=== PATIENT | female | born 2000 | race Caucasian/White ===

== ENCOUNTER 2019-04-14 15:02 | Emergency (ER) | payer OTHER ==
[2019-04-14 15:17] VITALS: BP 123/73
[2019-04-14] MEDS ORDERED: ACETAMINOPHEN 325 MG TABLET PO STA (15:24)
--- NOTE | 2019-04-14 15:38 | ED Physician Documentation ---
History of Present Illness - Stated complaint Stated Complaint: HEAD INJ - Chief complaint Chief Complaint: General - History obtained from History obtained from: Patient - History of Present Illness Timing: Yesterday Pain level max: 7 Pain level now: 6 Improved by: Nothing Worsened by: Nothing - Additonal information Additional information: 19-year-old female presents the emergency department after falling off of a horse yesterday. When she fell to the ground she struck her head on a rock. No loss of consciousness. Did have nausea but no vomiting. Headache has steadily worsened since yesterday. Has not taken anything for this. No numbness or tingling. No neck or back pain. Is not on blood thinners at home. Review of Systems Constitutional: denies: Fever, Chills Skin: denies: Rash Musculoskeletal: denies: Neck pain, Back pain Neurologic: denies: Headache PD PAST MEDICAL HISTORY - Past Medical History Past Medical History: No - Past Surgical History Past Surgical History: No - Present Medications Home Medications: Ambulatory Orders Medication Instructions Recorded Confirmed traZODone [Desyrel] 50 mg PO HS 04/14/19 04/14/19 - Allergies Allergies/Adverse Reactions: Allergies Allergy/AdvReac Type Severity Reaction Status Date / Time No Known Drug Allergies Allergy Verified 04/14/19 15:17 PD ED PE NORMAL - Vitals Vital signs reviewed: Yes - General General: Alert and oriented X 3, No acute distress, Well developed/nourished - HEENT HEENT: PERRL, Other (TTP L parietal area. no palpable skull fractures. 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, No motor deficit, No sensory deficit, Normal speech - Psych Psych: Normal mood, Normal affect Results - Vitals Vitals: Vital Signs - 24 hr 04/14/19 15:15 Temperature 36.1 C L Heart Rate 86 Respiratory 16 Rate Blood Pressure 123/73 O2 Saturation 100 Oxygen O2 Source Room air - Rads (name of study) head CT Radiology: Prelim report reviewed, EMP read contemporaneously, See rad report (no acute abnormality.) PD MEDICAL DECISION MAKING - ED course Complexity details: reviewed results, re-evaluated patient, considered differential, d/w patient ED course: 19-year-old female with a closed head injury. Normal CT scan. Head injury instructions given at bedside. Patient counseled regarding signs and symptoms for which I believe and urgent re-evaluation would be necessary. Patient with good understanding of and agreement to plan and is comfortable going home at this time This document was made in part using voice recognition software. While efforts are made to proofread this document, sound alike and grammatical errors may occur. Departure - Departure Disposition: 01 Home, Self Care Clinical Impression: Closed head injury Qualifiers: Encounter type: initial encounter Qualified Code(s): S09.90XA - Unspecified injury of head, initial encounter Condition: Good Instructions: ED Head Injury Closed Follow-Up: JOHNNIE ROJAS [Primary Care Provider] - Within 1 week Comments: Thankfully your head CT does not show any bleeding inside the brain or skull fractures. You can use Motrin or Tylenol as needed for headaches. Return if you worsen. Discharge Date/Time: 04/14/19 16:11
--- NOTE | 2019-04-14 15:59 | CT Report ---
Reason: fall off horse, head vs rock Procedure Date: 04/14/2019 Accession Number: [id number] / [id number] Procedure: CT - HEAD WO CPT Code: FULL RESULT: EXAM: CT HEAD EXAM DATE: 04/14/2019 03:42 PM. CLINICAL HISTORY: Fall off horse, head vs rock. COMPARISON: None. TECHNIQUE: Multiaxial CT images were obtained from the foramen magnum to the vertex. Reformats: Sagittal and coronal. IV contrast: None. In accordance with CT protocol optimization, one or more of the following dose reduction techniques were utilized for this exam: automated exposure control, adjustment of mA and/or KV based on patient size, or use of iterative reconstructive technique. FINDINGS: Parenchyma: No intraparenchymal hemorrhage. No evidence of mass, midline shift, or CT findings of infarction. Epperson-white differentiation is distinct. Extraaxial Spaces: Normal for age. No subdural or epidural collections identified. Ventricles: Normal in size and position. Sinuses and Orbits: Imaged paranasal sinuses, orbits, and mastoids show no significant abnormality. Bones: No evidence of fracture or calvarial defect. Other: None. IMPRESSION: Negative for an acute or focal intracranial abnormality. RADIA
== END 2019-04-14 16:11 | disposition home or self-care (01) ==
LOC: ED 15:02
DX: S09.90XA Unspecified injury of head, initial encounter (principal); V80.010A Animal-rider injured by fall from or being thrown from horse in noncollision accident, initial encounter; W22.8XXA Striking against or struck by other objects, initial encounter; Y93.52 Activity, horseback riding
CPT/HCPCS: 70450; 99284; A9270

== ENCOUNTER 2019-11-24 15:41 | Emergency (ER) | payer OTHER ==
--- NOTE | 2019-11-24 16:18 | ED Physician Documentation ---
PD HPI URI - Stated complaint Stated Complaint: HEADACHE PAIN FEVER - Chief complaint Chief Complaint: General - History obtained from History obtained from: Patient - History of Present Illness Timing - onset: How many days ago (6) Timing duration: Days (6) Timing details: Gradual onset (She has had 6 days of general malaise fever chills nausea lessened oral intake and headache. She had been in bed in quarters. She been trying to hydrate but has been having increasing nausea. She states decreased urine output the last couple of days. She denies any diarrhea. She has had a little bit of cough but actually very minimal respiratory symptoms. She has had increased headaches in the last day or 2 but no neck stiffness nor confusion. She has increased weakness today with a lightheadedness upon standing and walking.) Associated symptoms: Fever, Nasal congestion, Dry cough (mild), NVD. No: Sore throat, Chest pain, Dyspnea Contributing factors: Sick contact (She states others in her [employer] have had similar symptoms and viral type illnesses) Improves by: Rest Worsened by: Activity (She feels lightheaded with getting up and walking around. She feels more nauseous.) Similar symptoms before: Has not had sx before Recently seen: [facility] ([facility] without any prescriptions given told it was a viral illness. Is taken ibuprofen.) Review of Systems Constitutional: reports: Fever, Chills, Myalgias, Fatigue Nose: reports: Congestion. denies: Rhinorrhea / runny nose Throat: denies: Sore throat Cardiac: denies: Chest pain / pressure Respiratory: reports: Cough. denies: Dyspnea, Wheezing GI: reports: Nausea, Vomiting. denies: Abdominal Pain, Diarrhea : denies: Dysuria Skin: denies: Rash Neurologic: reports: Generalized weakness, Near syncope (today), Headache. denies: Confused, Altered mental status PD PAST MEDICAL HISTORY - Past Medical History Cardiovascular: None Respiratory: None Neuro: None Endocrine/Autoimmune: None - Past Surgical History Past Surgical History: No - Present Medications Home Medications: Ambulatory Orders Medication Instructions Recorded Confirmed Hydrocodone/Acetaminophen [[place] 1 each PO Q6H PRN #12 tablet 11/24/19 5-325 Tablet] Ibuprofen [Motrin] 600 mg PO TID PRN #20 tab 11/24/19 Ondansetron Odt [Zofran] 4 mg TL Q6H PRN #20 tablet 11/24/19 dexAMETHasone [Decadron] 4 mg PO DAILY #5 tablet 11/24/19 - Allergies Allergies/Adverse Reactions: Allergies Allergy/AdvReac Type Severity Reaction Status Date / Time No Known Drug Allergies Allergy Verified 11/24/19 16:01 - Social History Does the pt smoke?: No Smoking Status: Never smoker PD ED PE NORMAL - Vitals Vital signs reviewed: Yes - General General: Alert and oriented X 3, Well developed/nourished - HEENT HEENT: Atraumatic, Ears normal, Pharynx benign. No: Moist mucous membranes - Neck Neck: Supple, no meningeal sign, Other (Mild anterior adenopathy. No neck stiffness. She is able to touch her chin to her chest without problems. Mild light sensitivity for her headache.) - Cardiac Cardiac: No murmur. No: RRR (Regular but tachycardic.) - Respiratory Respiratory: Clear bilaterally - Abdomen Abdomen: Normal bowel sounds, Soft, Non tender, Non distended - Derm Derm: Normal color, Warm and dry - Extremities Extremities: No tenderness to palpate, Normal ROM s pain - Neuro Neuro: Alert and oriented X 3, No motor deficit, Normal speech Results - Vitals Vitals: Vital Signs - 24 hr 11/24/19 11/24/19 11/24/19 15:50 16:35 18:01 Temperature 38.1 C H 38.5 C H Heart Rate 118 H 93 79 Respiratory 18 18 16 Rate Blood Pressure 117/75 112/72 106/61 O2 Saturation 97 99 97 Oxygen O2 Source Room air - Labs Labs: Laboratory Tests 11/24/19 11/24/19 11/24/19 16:17 16:17 16:17 WBC 9.3 RBC 5.01 Hgb 12.8 Hct 41.5 MCV 82.8 MCH 25.5 L MCHC 30.8 L RDW 14.9 Plt Count 226 MPV 10.0 Neut # (Auto) 6.8 H Lymph # (Auto) 1.3 L [place] # (Auto) 1.1 H Eos # (Auto) 0.0 Baso # (Auto) 0.0 Absolute Nucleated RBC 0.00 Nucleated RBC % 0.0 Sodium 131 L Potassium 3.6 Chloride 100 L Carbon Dioxide 23 Anion Gap 8.0 BUN 10 Creatinine 0.7 Estimated GFR (MDRD) 107 Glucose 82 Calcium 8.5 Total Bilirubin 0.2 AST 16 ALT 11 Alkaline Phosphatase 47 C-Reactive Protein 1.0 Total Protein 7.4 Albumin 4.2 Globulin 3.2 Albumin/Globulin Ratio 1.3 Lipase 28 Influenza A (Rapid) Negative Influenza B (Rapid) Negative PD MEDICAL DECISION MAKING - ED course Complexity details: reviewed results (Flu test is negative but she still sounds very flulike on her symptoms.), re-evaluated patient (She is feeling much improved with some antiemetic and fluids. Headache is moderately to fairly well improved with Tylenol and Toradol. She is given some morphine to help with the residual part of the headache. She is able to drink some fluids here in feels improved.), considered differential (The patient has general malaise, nausea, body aches, headache and only minimal cough over the last 6 days. She is not really having trouble breathing per se. She was having nausea and decreased appetite with lessened urine output in general weakness and lightheadedness. She was having increasing headache as well. Sound likely to be dehydrated adding to her general flulike symptoms. She does not really have respiratory symptoms that would be suggestive of coronavirus. She did not look ill enough to really think of meningitis so I defer lumbar puncture at this time.), d/w patient Departure - Departure Disposition: 01 Home, Self Care Clinical Impression: Flu-like symptoms, Dehydration Nausea and vomiting Qualifiers: Vomiting type: unspecified Vomiting Intractability: non-intractable Qualified Code(s): R11.2 - Nausea with vomiting, unspecified Headache Qualifiers: Headache type: unspecified Headache chronicity pattern: acute headache Intractability: not intractable Qualified Code(s): R51 - Headache Condition: Stable Record reviewed to determine appropriate education?: Yes Instructions: ED Flu, ED Nausea Vomiting Follow-Up: JOHNNIE ROJAS [Primary Care Provider] - Prescriptions: dexAMETHasone [Decadron] 4 mg PO DAILY #5 tablet Hydrocodone/Acetaminophen [[place] 5-325 Tablet] 1 each PO Q6H PRN #12 tablet PRN Reason: Pain Ibuprofen [Motrin] 600 mg PO TID PRN #20 tab PRN Reason: Pain Ondansetron Odt [Zofran] 4 mg TL Q6H PRN #20 tablet PRN Reason: Nausea / Vomiting Comments: Your influenza test is negative but this still sounds very flulike type of process. Try to stay well-hydrated as I think that contributed to your symptoms in addition to the illness. To aid in that, use ondansetron every 4-6 hours if needed for nausea. Decadron steroid daily for 5 days for inflammation. Use some ibuprofen 2-3 times a day for fevers and pains. To that add hydrocodone if needed for headache. Small frequent fluids and simple diet to begin with. Follow-up with your primary care in the next couple of days for recheck. Return to the ER sooner if worsening. Forms: Activity restrictions
[2019-11-24] MEDS ORDERED: SODIUM CHLORIDE 0.9% 1,000 ML IV ONE (16:39)
[2019-11-24] MEDS ORDERED: KETOROLAC 30 MG/ML VIAL IVP STA (16:39)
[2019-11-24] MEDS ORDERED: ONDANSETRON 4 MG/2 ML VIAL IVP STA (16:40)
[2019-11-24] MEDS ORDERED: FAMOTIDINE 20 MG/2 ML VIAL IVP STA (16:41)
[2019-11-24] MEDS ORDERED: ACETAMINOPHEN 1,000 MG/100 ML 100 ML IV STA (16:41)
[2019-11-24 16:50] LABS: BASOPHILS % (AUTO) 0.2 %; HGB - HEMOGLOBIN 12.8 g/dL (12.0-16.0); LYMPHOCYTES # (AUTO) 1.3 10^3/uL (1.5-3.5); LYMPHOCYTES % (AUTO) 14.1 %; MEAN CORPUSCULAR HEMOGLOBIN 25.5 pg (27.0-31.0); MEAN CORPUSCULAR HGB CONC 30.8 g/dL (32.0-36.0); MEAN CORPUSCULAR VOLUME 82.8 fL (81.0-99.0); MONOCYTES # (AUTO) 1.1 10^3/uL (0.0-1.0); MONOCYTES % (AUTO) 11.8 %; NEUTROPHILS # (AUTO) 6.8 10^3/uL (1.5-6.6); NEUTROPHILS % (AUTO) 73.6 %; PLT - PLATELET COUNT 226 10^3/uL (130-450); RED BLOOD COUNT 5.01 10^6/uL (4.20-5.40); RED CELL DISTRIBUTION WIDTH 14.9 % (12.0-15.0); WHITE BLOOD COUNT 9.3 x10^3/uL (4.8-10.8)
[2019-11-24 17:05] LABS: ALBUMIN 4.2 g/dL (3.2-5.5); ALBUMIN/GLOBULIN RATIO 1.3 (1.0-2.2); BILIRUBIN,TOTAL 0.2 mg/dL (0.2-1.0); CALCIUM 8.5 mg/dL (8.5-10.3); CREATININE 0.7 mg/dL (0.4-1.0); TOTAL PROTEIN 7.4 g/dL (6.7-8.2)
[2019-11-24] MEDS: MORPHINE 2 MG/ML CARPUJECT IVP STA ×2 (17:29→18:41)
[2019-11-24] MEDS ORDERED: DEXAMETHASONE 10 MG/ML VIAL IVP STA (18:21)
[2019-11-24] MEDS ORDERED: HYDROcod/ACET 5/325 Prepack 4 PO STA (18:21)
[2019-11-24] MEDS ORDERED: ONDANSETRON ODT 4 MG Prepack 2 TL PRN (18:21)
[2019-11-24] MEDS ORDERED: MORPHINE 2 MG/ML CARPUJECT IVP STA (18:21)
[2019-11-24 18:48] VITALS: BP 99/62
== END 2019-11-24 19:13 | disposition home or self-care (01) ==
LOC: ED 15:41
DX: J11.1 Influenza due to unidentified influenza virus with other respiratory manifestations (principal); J11.2 Influenza due to unidentified influenza virus with gastrointestinal manifestations
CPT/HCPCS: 36415; 80053; 83690; 85025; 86140; 87275; 87276; 96361; 96374; 96375; 96376; 99284; 99285; J0131

== ENCOUNTER 2020-02-01 18:37 | Emergency (ER) | payer OTHER ==
[2020-02-01 18:44] VITALS: BP 131/80
[2020-02-01] MEDS ORDERED: BUFFERED LIDOCAINE 10 ML SYRINGE SUBQ STA (18:48)
--- NOTE | 2020-02-01 18:49 | ED Physician Documentation ---
PD HPI UPPER EXT INJURY - Stated complaint Stated Complaint: LT INDEX FINGER LAX - Chief complaint Chief Complaint: Laceration - History obtained from History obtained from: Patient - History of Present Illness Location: Left (Right-handed young woman who is up-to-date on tetanus cut her left index finger with a knife while opening something accidentally at home just prior to arrival.) Review of Systems Constitutional: reports: Reviewed and negative Ears: reports: Reviewed and negative Nose: reports: Reviewed and negative PD PAST MEDICAL HISTORY - Past Medical History Cardiovascular: None Respiratory: None Neuro: None Endocrine/Autoimmune: None - Past Surgical History Past Surgical History: No - Present Medications Home Medications: Ambulatory Orders Medication Instructions Recorded Confirmed Hydrocodone/Acetaminophen [[place] 1 each PO Q6H PRN #12 tablet 11/24/19 5-325 Tablet] Ibuprofen [Motrin] 600 mg PO TID PRN #20 tab 11/24/19 Ondansetron Odt [Zofran] 4 mg TL Q6H PRN #20 tablet 11/24/19 dexAMETHasone [Decadron] 4 mg PO DAILY #5 tablet 11/24/19 - Allergies Allergies/Adverse Reactions: Allergies Allergy/AdvReac Type Severity Reaction Status Date / Time No Known Drug Allergies Allergy Verified 02/01/20 18:39 - Social History Does the pt smoke?: No Smoking Status: Never smoker PD ED PE NORMAL - Vitals Vital signs reviewed: Yes - General General: Alert and oriented X 3, No acute distress - Extremities Extremities: Other (On the left index finger at the level of the proximal phalanx and PIP, radial side there is a curved 2 cm laceration just goes into subcutaneous tissue with intact distal neurovascular status.) - Neuro Neuro: Alert and oriented X 3, Normal speech Results - Vitals Vitals: Vital Signs - 24 hr 02/01/20 18:40 Temperature 36.6 C Heart Rate 82 Respiratory 16 Rate Blood Pressure 131/80 H O2 Saturation 100 Oxygen O2 Source Room air Procedures - Laceration (location) L 2nd finger Length in cm: 2 Wound type: Curved, Superficial Neurovascular status: Sensory intact, Motor intact, Vascular intact Anesthesia: Lidocaine 1%, With bicarb (dig block) Wound Preparation: Irrigated copiously NS Skin layer closure: Nylon, Interrupted, Size #-0 - enter number (5-0) Other: Tetanus UTD Complexity: Simple Departure - Departure Disposition: 01 Home, Self Care Clinical Impression: Laceration of left index finger Qualifiers: Encounter type: initial encounter Damage to nail status: without damage Foreign body presence: without foreign body Qualified Code(s): S61.211A - Laceration without foreign body of left index finger without damage to nail, initial encounter Condition: Good Record reviewed to determine appropriate education?: Yes Instructions: ED Laceration Hand Comments: Come back for any signs of infection which would include: Redness, swelling, drainage, increased pain, or fevers. You can wash it soap and water. Keep it covered and moist with bacitracin ointment which is available over the counter; avoid neosporin. Follow-up with your physician in 10-14 days for suture removal.
== END 2020-02-01 19:40 | disposition home or self-care (01) ==
LOC: ED 18:37
DX: S61.211A Laceration without foreign body of left index finger without damage to nail, initial encounter (principal); W26.0XXA Contact with knife, initial encounter; Y93.89 Activity, other specified; Y92.009 Unspecified place in unspecified non-institutional (private) residence as the place of occurrence of the external cause
CPT/HCPCS: 12001; 99281; 99282

== ENCOUNTER 2020-07-02 17:57 | Emergency (ER) | payer OTHER ==
[2020-07-02] MEDS ORDERED: SODIUM CHLORIDE 0.9% 1,000 ML IV STA ×2 (19:10)
[2020-07-02] MEDS ORDERED: PROCHLORPERAZINE 10 MG/2 ML VIAL IVP STA (19:10)
[2020-07-02 19:11] LABS: BASOPHILS % (AUTO) 0.3 %; EOSINOPHILS # (AUTO) 0.1 10^3/uL (0.0-0.7); EOSINOPHILS % (AUTO) 0.7 %; HGB - HEMOGLOBIN 12.1 g/dL (12.0-16.0); LYMPHOCYTES # (AUTO) 2.7 10^3/uL (1.5-3.5); LYMPHOCYTES % (AUTO) 23.3 %; MEAN CORPUSCULAR HEMOGLOBIN 27.3 pg (27.0-31.0); MEAN CORPUSCULAR HGB CONC 33.1 g/dL (32.0-36.0); MEAN CORPUSCULAR VOLUME 82.6 fL (81.0-99.0); MEAN PLATELET VOLUME 9.3 fL (7.9-10.8); MONOCYTES # (AUTO) 0.7 10^3/uL (0.0-1.0); NEUTROPHILS # (AUTO) 8.1 10^3/uL (1.5-6.6); NEUTROPHILS % (AUTO) 69.3 %; PLT - PLATELET COUNT 321 10^3/uL (130-450); RED BLOOD COUNT 4.43 10^6/uL (4.20-5.40); RED CELL DISTRIBUTION WIDTH 14.1 % (12.0-15.0); WHITE BLOOD COUNT 11.7 x10^3/uL (4.8-10.8)
--- NOTE | 2020-07-02 19:14 | ED Physician Documentation ---
History of Present Illness - Stated complaint Stated Complaint: N/V/DIZZY - Chief complaint Chief Complaint: General - History obtained from History obtained from: Patient - Additonal information Additional information: 20-year-old female who is approximately 12 weeks comes to the emergency department with uncontrolled nausea and vomiting. LMP 04/08/2020. [facility]. She has had a ultrasound confirming IUP. Patient denies lower abdominal pain dysuria vaginal bleeding or loss of fluids. She is typically been taking Zofran to help with the nausea but it is no longer effective. She has also been taking Dramamine without relief. She has been having morning sickness the entire duration of her but worse over the last 2 weeks and for the last 3 days she has been unable to keep any medications down. Review of Systems Constitutional: denies: Fever, Chills Eyes: reports: Reviewed and negative Ears: reports: Reviewed and negative Nose: reports: Reviewed and negative Throat: reports: Reviewed and negative Cardiac: reports: Reviewed and negative Respiratory: reports: Reviewed and negative GI: reports: Nausea, Vomiting. denies: Abdominal Pain, Constipation, Diarrhea : reports: LMP (04/08/20), Now EGA. denies: Dysuria, Frequency, Vaginal bleeding Skin: reports: Reviewed and negative Musculoskeletal: reports: Reviewed and negative Neurologic: reports: Reviewed and negative PD PAST MEDICAL HISTORY - Past Medical History Past Medical History: Yes Cardiovascular: None Respiratory: None Neuro: None Endocrine/Autoimmune: None - Past Surgical History Past Surgical History: No - Present Medications Home Medications: Ambulatory Orders Medication Instructions Recorded Confirmed Hydrocodone/Acetaminophen [[place] 1 each PO Q6H PRN #12 tablet 11/24/19 5-325 Tablet] Ibuprofen [Motrin] 600 mg PO TID PRN #20 tab 11/24/19 Ondansetron Odt [Zofran] 4 mg TL Q6H PRN #20 tablet 11/24/19 dexAMETHasone [Decadron] 4 mg PO DAILY #5 tablet 11/24/19 Cephalexin [Keflex] 500 mg PO BID #14 capsule 07/02/20 Prochlorperazine [Compazine] 5 mg PO Q6H #10 tablet 07/02/20 - Allergies Allergies/Adverse Reactions: Allergies Allergy/AdvReac Type Severity Reaction Status Date / Time No Known Drug Allergies Allergy Verified 07/02/20 18:15 - Social History Does the pt smoke?: No Smoking Status: Never smoker Does the pt drink ETOH?: No Does the pt have substance abuse?: No - Immunizations Immunizations are current?: Yes - POLST Patient has POLST: No PD ED PE NORMAL - General General: Alert and oriented X 3, No acute distress, Well developed/nourished - HEENT HEENT: Atraumatic, EOMI, Moist mucous membranes - Neck Neck: Supple, no meningeal sign, No adenopathy - Cardiac Cardiac: RRR, No murmur, No gallop - Respiratory Respiratory: No respiratory distress, Clear bilaterally - Abdomen Abdomen: Normal bowel sounds, Soft - Back Back: No CVA TTP, No spinal TTP - Derm Derm: Normal color, Warm and dry, No rash - Extremities Extremities: No deformity - Neuro Neuro: Alert and oriented X 3, planning rn 2-12 intact, No motor deficit Eye Opening: Spontaneous Motor: Obeys Commands Verbal: Oriented GCS Score: 15 - Psych Psych: Normal mood Results - Vitals Vitals: Vital Signs - 24 hr 07/02/20 18:11 Temperature 36.8 C Heart Rate 80 Respiratory 16 Rate Blood Pressure 113/67 O2 Saturation 100 Oxygen O2 Source Room air - EKG (time done) 1849 Rate: Rate (enter#) (69) Rhythm: NSR [place]: Normal Intervals: Normal [place] QRS: Normal Ischemia: Normal ST segments Compare to prior EKG: Old EKG unavailable Computer interpretation: Agree with computer - Labs Labs: Laboratory Tests 07/02/20 07/02/20 07/02/20 18:50 18:50 18:50 WBC 11.7 H RBC 4.43 Hgb 12.1 Hct 36.6 L MCV 82.6 MCH 27.3 MCHC 33.1 RDW 14.1 Plt Count 321 MPV 9.3 Neut # (Auto) 8.1 H Lymph # (Auto) 2.7 [place] # (Auto) 0.7 Eos # (Auto) 0.1 Baso # (Auto) 0.0 Absolute Nucleated RBC 0.00 Nucleated RBC % 0.0 Sodium 146 H Potassium 3.4 L Chloride 106 Carbon Dioxide 26 Anion Gap 14.0 H BUN 13 Creatinine 0.6 Estimated GFR (MDRD) 126 Glucose 110 H Calcium 8.5 Total Bilirubin 0.3 AST 14 ALT 13 Alkaline Phosphatase 36 L Total Protein 6.6 L Albumin 3.8 Globulin 2.8 Albumin/Globulin Ratio 1.4 HCG, Quant 87497.00 Urine Color Urine Clarity Urine pH Ur Specific [place] Urine Protein Urine Glucose (UA) Urine Ketones Urine Occult Blood Urine Nitrite Urine Bilirubin Urine Urobilinogen Ur Leukocyte Esterase Urine RBC Urine WBC Ur Squamous Epith Cells Urine Bacteria Ur Microscopic Review Urine Culture Comments 07/02/20 19:20 WBC RBC Hgb Hct MCV MCH MCHC RDW Plt Count MPV Neut # (Auto) Lymph # (Auto) [place] # (Auto) Eos # (Auto) Baso # (Auto) Absolute Nucleated RBC Nucleated RBC % Sodium Potassium Chloride Carbon Dioxide Anion Gap BUN Creatinine Estimated GFR (MDRD) Glucose Calcium Total Bilirubin AST ALT Alkaline Phosphatase Total Protein Albumin Globulin Albumin/Globulin Ratio HCG, Quant Urine Color YELLOW Urine Clarity CLEAR Urine pH 6.0 Ur Specific [place] >=1.030 H Urine Protein NEGATIVE Urine Glucose (UA) NEGATIVE Urine Ketones 15 H Urine Occult Blood SMALL H Urine Nitrite NEGATIVE Urine Bilirubin NEGATIVE Urine Urobilinogen 0.2 (NORMAL) Ur Leukocyte Esterase NEGATIVE Urine RBC 0-5 Urine WBC 0-3 Ur Squamous Epith Cells NONE SEEN Urine Bacteria Rare Ur Microscopic Review INDICATED Urine Culture Comments NOT INDICATED PD MEDICAL DECISION MAKING - ED course Complexity details: reviewed results, re-evaluated patient, considered diff erential, d/w patient, d/w family ED course: 20-year-old female who is a primigravid comes to the ER with uncontrolled nausea and vomiting in early . [place] is [place] IUP. Patient denies vaginal bleeding or loss of fluids. Her Zofran is not working to control the nausea at home - Here in the emergency department her ECG was unremarkable and without any ischemic changes. Her labs revealed sodium of 145. Preserved renal function. No anemia. She was given 2 L of IV fluids here in the emergency department as well as Compazine. Following the Compazine she was tolerating oral liquids and felt ready for discharge home. We were able to obtain easy heart tones at the bedside with a rate of about 150. Though she denies dysuria urgency or frequency there is a small amount of blood in her urine is some bacteria. A culture is pending but we will initiate Keflex. Patient was advised to discuss this ED visit with Dr. [facility]. Emergent return precautions were discussed Departure - Departure Disposition: Home, Self Care Clinical Impression: and not yet delivered in first trimester, ASB (asymptomatic bacteriuria) Vomiting Qualifiers: Vomiting type: unspecified Vomiting Intractability: non-intractable Nausea presence: with nausea Qualified Code(s): R11.2 - Nausea with vomiting, unspecified Condition: Stable Record reviewed to determine appropriate education?: Yes Follow-Up: KANU FUNK [Primary Care Provider] - Prescriptions: Prochlorperazine [Compazine] 5 mg PO Q6H #10 tablet Cephalexin [Keflex] 500 mg PO BID #14 capsule Comments: Norma I hope that your nausea and vomiting improve soon. Thankfully you are almost at the end of your first trimester so it should be getting better on its own. To help with the vomiting at home I have prescribed a limited amount of Compazine since the Zofran is not working. Please use sparingly. Please discuss this [place] Your urine today shows some bacteria and possible early infection. This may be contributing to your symptoms. I have prescribed a medication called Keflex that you are to fill tomorrow and begin taking twice a day for the next week. Your first dose of Keflex has been given here in the emergency department. Please return to the ED for any fevers, uncontrolled vomiting, suddenly severe abdominal pain or if you feel that your symptoms are not improving
[2020-07-02 19:36] LABS: BILIRUBIN,URINE NEGATIVE (NEGATIVE); GLUCOSE, URINE (UA) NEGATIVE (NEGATIVE); KETONES,URINE (UA) 15 mg/dL (NEGATIVE); LEUKOCYTE ESTERASE, URINE NEGATIVE (NEGATIVE); NITRITE,URINE NEGATIVE (NEGATIVE); OCCULT BLOOD,URINE SMALL (NEGATIVE); PROTEIN,URINE NEGATIVE (NEGATIVE); UROBILINOGEN,URINE 0.2 (NORMAL) E.U./dL (NORMAL)
[2020-07-02 19:41] LABS: ALBUMIN 3.8 g/dL (3.2-5.5); ALBUMIN/GLOBULIN RATIO 1.4 (1.0-2.2); BILIRUBIN,TOTAL 0.3 mg/dL (0.2-1.0); CALCIUM 8.5 mg/dL (8.5-10.3); CREATININE 0.6 mg/dL (0.4-1.0); TOTAL PROTEIN 6.6 g/dL (6.7-8.2)
[2020-07-02 19:41] LABS: CLARITY,URINE CLEAR (CLEAR)
[2020-07-02 19:51] LABS: BACTERIA,URINE Rare /HPF (None Seen); RBC,URINE 0-5 /HPF (0-5); SQUAMOUS EPITHELIAL CELL,UR NONE SEEN (<= Few)
[2020-07-02] MEDS ORDERED: cephALEXin 250 MG CAPSULE PO STA (20:16)
[2020-07-02 20:20] VITALS: BP 103/59
== END 2020-07-02 20:27 | disposition home or self-care (01) ==
LOC: ED 17:57
DX: O21.0 Mild hyperemesis gravidarum (principal); O23.41 Unspecified infection of urinary tract in pregnancy, first trimester; B96.89 Other specified bacterial agents as the cause of diseases classified elsewhere; Z3A.12 12 weeks gestation of pregnancy
CPT/HCPCS: 36415; 80053; 81001; 84702; 85025; 93005; 96374; 99284; A9270; 81003; 83690; 87086

== ENCOUNTER 2020-11-19 08:00 | Outpatient (CLI) | payer OTHER ==
[2020-11-20 19:16] LABS: BACTERIAL VAGINOSIS DNA POSITIVE (NEGATIVE); CANDIDA GLABRATA DNA NEGATIVE (NEGATIVE); CANDIDA GROUP DNA NEGATIVE (NEGATIVE); CANDIDA KRUSEI DNA NEGATIVE (NEGATIVE); TRICHOMONAS VAGINALIS DNA NEGATIVE (NEGATIVE)
== END 2020-11-19 23:59 | disposition home or self-care (01) ==
LOC: LAB.R 08:00
PROVIDERS: ATTEND Advanced Practice Midwife
DX: O23.599 Infection of other part of genital tract in pregnancy, unspecified trimester (principal)
CPT/HCPCS: 87661; 87801

== ENCOUNTER 2020-12-08 13:13 | Outpatient (CLI) | payer OTHER ==
--- NOTE | 2020-12-08 19:15 | Ultrasound Report ---
PROCEDURE: OB F/U or Repeat INDICATIONS: UTERINE SIZE DATE DISCREPANCY OUTSIDE/PRIOR DATING DATA: Last menstrual period (LMP): 04/08/2020. LMP-based estimated date of delivery (ITZ): 01/13/2021. First dating scan (date and location): Outside study dated 08/31/2020. Estimated date of delivery (ITZ) from first dating scan: 01/19/2021. Provided stated due date is 2020. TECHNIQUE: Real-time scanning was performed of the fetus, with image documentation and biometric measurements. Endovaginal scanning: Not indicated COMPARISON: None. FINDINGS: General: A single living intrauterine gestation is present. Presentation: Vertex Placenta: Placental position is anterior,, without previa. Amniotic fluid index: 15.6 cm, 59.4 percentile for gestational age. Largest pocket measures 5.65 cm. heart rate: 147 beats per minute. Maternal cervical canal: 2.99 cm long and is closed; normal length is 2.5 cm or more. biometrics: Biparietal diameter: 8.57 cm, 34 weeks, 4 days Head circumference: 31.28 cm, 35 weeks, 0 day Abdominal circumference: 29.47 cm, 33 weeks, 3 days Femur length: 6.06 cm, 31 weeks, 4 days. Estimated gestational age from initial scan: 34 weeks, 6 days Composite gestational age from present scan: 33 weeks, 5 days Estimated weight and percentile: 2130 g, 9.2 percentile Measurement variability in biometric dating: +/- 10 days from 12-20 weeks gestation, +/- 2 weeks from 20-30 weeks gestation, +/- 3 weeks at 30 weeks gestation or more. Other: chest, bilateral kidneys, urinary bladder and stomach are visualized and are within norm al limits.. IMPRESSION: 1. Single live intrauterine with fetus in vertex presentation. heart rate is 147 bpm. Normal amount of amniotic fluid at 59.4 percentile. Largest pocket measures 5.65 cm. 2. Estimated weight is at 9.2 percentile. Estimated gestational age based on current study is 3 3 weeks, 5 days. Estimated gestational age based on initial scan is 34 weeks, 6 days. 3. Cervix is closed and measures 2.99 cm in length. Reviewed by: Dejan Vickers MD on 12/08/2020 6:14 PM [facility] Approved by: Dejan Vickers MD on 12/08/2020 6:14 PM [facility] Station ID: [id number]
== END 2020-12-08 13:14 | disposition home or self-care (01) ==
LOC: DI 13:13
PROVIDERS: ATTEND Advanced Practice Midwife
DX: O26.849 Uterine size-date discrepancy, unspecified trimester (principal); Z3A.33 33 weeks gestation of pregnancy

== ENCOUNTER 2020-12-15 15:50 | Outpatient (CLI) | payer OTHER ==
[2020-12-15 16:13] VITALS: BP 108/78
[2020-12-15 16:38] LABS: BILIRUBIN,URINE NEGATIVE (NEGATIVE); GLUCOSE, URINE (UA) NEGATIVE (NEGATIVE); KETONES,URINE (UA) NEGATIVE (NEGATIVE); LEUKOCYTE ESTERASE, URINE NEGATIVE (NEGATIVE); NITRITE,URINE NEGATIVE (NEGATIVE); OCCULT BLOOD,URINE NEGATIVE (NEGATIVE); PH,URINE 6.5 PH (5.0-7.5); PROTEIN,URINE NEGATIVE (NEGATIVE); UROBILINOGEN,URINE 0.2 (NORMAL) E.U./dL (NORMAL)
[2020-12-15 16:42] LABS: CLARITY,URINE HAZY (CLEAR)
[2020-12-15 16:48] LABS: RBC,URINE None Seen /HPF (0-5); SQUAMOUS EPITHELIAL CELL,UR MOD Squamous (<= Few); WBC,URINE 0-3 /HPF (0-5)
[2020-12-15 16:49] LABS: BACTERIA,URINE Moderate /HPF (None Seen)
--- NOTE | 2020-12-15 18:09 | PROVIDER PROGRESS NOTE ---
- HPI Chief Complaint: Pain, non-labor Current : Current EDU 01/13/21 Gestation 35 Weeks and 6 Days 1 Para 0 Vital Signs Temperature 36.8 C 12/15/20 16:08 Heart Rate 119 H 12/15/20 16:08 Respiratory Rate 16 12/15/20 16:08 Blood Pressure 108/78 12/15/20 16:08 O2 Saturation 99 12/15/20 16:08 Temperature 36.8 C 12/15/20 16:08 Heart Rate 119 H 12/15/20 16:08 Respiratory Rate 16 12/15/20 16:08 Blood Pressure 108/78 12/15/20 16:08 O2 Saturation 99 12/15/20 16:08 - Procedures OB Procedure Performed: NST Diagnosis/Indication for NST: labor Service Date of procedure: 12/15/20 - Plan Plan: Pt evaluated face to face Norma is a 20yo @ 35.6wks who presents today to [facility] with c/o lower back pain which wraps around to her front that occurred last night in the middle of the night for several hours and then resolved. She states the pain was gone when she woke up but returned later this afternoon. She denies vaginal bleeding or leakage of fluid. She reports +FM but states she "does not pay that much attention to her movements". She has felt intermittent abdominal tightening that comes and goes and states her abdomen is hard when they happen but denies associated pain. She denies having more than 5 of them in an hours. She states they did not seem to be associated with the back pain however they did happen when the back was happening. She states those contractions distracted her from the back pain but states she would not describe them as painful. She states she feels she drinks enough water daily but does not really like the taste of water so maybe she is not drinking enough. She denies change in bowel habits, diarrhea or constipation. She denies urinary symptoms. Pt states the pain did not make her nervous or feel she needed to come in, however her mom told her she should present for evaluation. O: Vital signs WNL. Afebrile. UA negative (cloudy urine) NST performed 12/15/2020 NST read 12/15/2020 NST reactive. FHR baseline 140, moderate variability, + accels, no decels No contractions appreciated via tocometry SVE deferred A: 20yo @ 35.6wks gestation FHR Category I Back pain, mild P: Pt released home with precautions. Encouraged pt to pay attention to movements daily and reviewed kick counting. Pt has emergency contact information. Reviewed warning s/sx and when to present. Pt verbalized understanding and agrees to above plan. She denies further questions or concerns at this time.
== END 2020-12-15 18:00 | disposition home or self-care (01) ==
LOC: FBP 15:50 → WFO 15:50
PROVIDERS: ATTEND Nurse Practitioner Obstetrics & Gynecology
DX: O99.891 Other specified diseases and conditions complicating pregnancy (principal); M54.9 Dorsalgia, unspecified; Z3A.35 35 weeks gestation of pregnancy
CPT/HCPCS: 59025; 81001; 99213

== ENCOUNTER 2020-12-23 08:00 | Outpatient (CLI) | payer OTHER | END 2020-12-23 23:59 | disposition home or self-care (01) | LOC: LAB.WC 08:00 | PROVIDERS: ATTEND Nurse Practitioner Obstetrics & Gynecology | DX: Z36.85 Encounter for antenatal screening for Streptococcus B (principal) | CPT/HCPCS: 87797 ==

== ENCOUNTER 2020-12-25 09:51 | Outpatient (CLI) | payer OTHER ==
[2020-12-25 10:04] VITALS: BP 125/71
--- NOTE | 2020-12-25 13:58 | PROCEDURE REPORT ---
- HPI Diagnosis/Indication for NST: Intrauterine growth restriction Current EDU 01/13/21 Gestation 37 Weeks and 2 Days 1 Para 0 Vital Signs Temperature 36.9 C 12/25/20 10:03 Heart Rate 108 H 12/25/20 10:03 Respiratory Rate 18 12/25/20 10:03 Blood Pressure 125/71 12/25/20 10:03 O2 Saturation 100 12/25/20 10:03 Temperature 36.9 C 12/25/20 10:03 Heart Rate 108 H 12/25/20 10:03 Respiratory Rate 18 12/25/20 10:03 Blood Pressure 125/71 12/25/20 10:03 O2 Saturation 100 12/25/20 10:03 - NST Procedure NST Procedure Start Date 12/25/20 Start Time 10:07 Stop Time 10:27 Vibroacoustic Stimulation Used No Patient States Movement Yes - Results and Plan Findings/Impression: Norma is a 20yo with complicated by IUGR at 9.2% NST perform date 12/25/2020 NST read date 12/25/2020 Baseline 145, moderate variability, accels 15x15, no decels Impression: Reactive Final Diagnosis: IUGR Plan: BPP is scheduled for tomorrow Continue with routine care Continue with twice weekly NST, with once weekly BPP
== END 2020-12-25 10:36 | disposition home or self-care (01) ==
LOC: WFO 09:51 → FBP 09:53 → WFO 10:36
PROVIDERS: ATTEND Advanced Practice Midwife
DX: O36.5930 Maternal care for other known or suspected poor fetal growth, third trimester, not applicable or unspecified (principal); Z3A.37 37 weeks gestation of pregnancy
CPT/HCPCS: 59025

== ENCOUNTER 2020-12-26 16:28 | Outpatient (CLI) | payer OTHER ==
--- NOTE | 2020-12-26 20:12 | Ultrasound Report ---
PROCEDURE: OB Biophysical Profile INDICATIONS: UTERINE SIZE DATE DISCREPANCY OUTSIDE/PRIOR DATING DATA: Last menstrual period (LMP): 04/08/2020. LMP-based estimated date of delivery (ITZ): 01/13/2021. First dating scan (date and location): 12/08/2020. Estimated date of delivery (ITZ) from first dating scan: 01/13/2021. TECHNIQUE: Real-time scanning was performed of the fetus, with image documentation and biometric tyree surements. Biophysical profile was also obtained. Endovaginal scanning: Not needed COMPARISON: 12/08/2020 FINDINGS: General: A single living intrauterine gestation is present. Presentation: Vertex Placenta: Placental position is anterior, without previa. Amniotic fluid index: 11.2 cm, 27th percentile for gestational age. heart rate: 145 beats per minute. Maternal cervical canal is not well seen due to deep vertex presentation of the fetus. biometrics: Composite gestational age from present scan: 37 weeks 3 days Biophysical profile: Tone: 2 points. Movement: 2 points. Respiration: 2 points. Largest pocket of fluid: 2 points. Umbilical artery Doppler: 2.5, 2.2, 2.1 IMPRESSION: Normal amniotic fluid volume, at the 27th percentile for current gestational age. Vertex presentation . Normal biophysical profile and normal umbilical artery systolic/diastolic ratio. Reviewed by: Justin Robin MD on 12/26/2020 8:11 PM PDT Approved by: Justin Robin MD on 12/26/2020 8:11 PM PDT Station ID: [id number]
== END 2020-12-26 16:29 | disposition home or self-care (01) ==
LOC: DI 16:28
PROVIDERS: ATTEND Advanced Practice Midwife
DX: O26.849 Uterine size-date discrepancy, unspecified trimester (principal); Z3A.00 Weeks of gestation of pregnancy not specified

== ENCOUNTER 2020-12-31 16:36 | Outpatient (CLI) | payer OTHER ==
--- NOTE | 2021-01-01 09:42 | Ultrasound Report ---
PROCEDURE: OB Biophysical Profile INDICATIONS: UTERINE SIZE DATE DISCREPANCY OUTSIDE/PRIOR DATING DATA: Last menstrual period (LMP): 04/08/2020. LMP-based estimated date of delivery (ITZ): 01/13/2021. First dating scan (date and location): Not available. Estimated date of delivery (ITZ) from first dating scan: 01/13/2021 from provider report. TECHNIQUE: Real-time scanning was performed of the fetus, with image documentation and biometric tyree surements. Biophysical profile was also obtained. COMPARISON: 12/08/2020 and 12/26/2020 FINDINGS: General: A single living intrauterine gestation is present. Presentation: Cephalic Placenta: Placental position is anterior, without previa. Amniotic fluid index: 12.6 cm, 44.1 percentile for gestational age. heart rate: 149 beats per minute. Maternal cervical canal: Not well seen. Estimated gestational age from initial scan: 38 weeks, 1 day Biophysical profile: Tone: 2 points. Movement: 2 points. Respiration: 2 points. Largest pocket of fluid: 2 points. 4.66 cm Umbilical artery Doppler: 3.02, 2.56, 3.05 at the level of placenta, abdomen and mid cord respective ly. IMPRESSION: 1. Single live intrauterine with fetus in cephalic presentation. heart rate is 1 49 b pm. Normal amount of amniotic fluid. AVLE equals 12.6 cm which is at 44.1 percentile. 2. biophysical profile score is 8 out of 8. 3. Normal umbilical cord S/D ratio. Reviewed by: Dejan Vickers MD on 01/01/2021 9:41 AM PDT Approved by: Dejan Vickers MD on 01/01/2021 9:41 AM PDT Station ID: [id number]
== END 2020-12-31 16:37 | disposition home or self-care (01) ==
LOC: DI 16:36
PROVIDERS: ATTEND Advanced Practice Midwife
DX: O26.849 Uterine size-date discrepancy, unspecified trimester (principal)

== ENCOUNTER 2020-12-31 17:31 | Outpatient (CLI) | payer OTHER ==
[2020-12-31 17:40] VITALS: BP 136/84
--- NOTE | 2020-12-31 18:00 | PROCEDURE REPORT ---
- HPI Diagnosis/Indication for NST: Intrauterine growth restriction Vital Signs Temperature 36.6 C 12/31/20 17:38 Heart Rate 103 H 12/31/20 17:38 Respiratory Rate 18 12/31/20 17:38 Blood Pressure 136/84 H 12/31/20 17:38 O2 Saturation 100 12/31/20 17:38 Temperature 36.6 C 12/31/20 17:38 Heart Rate 103 H 12/31/20 17:38 Respiratory Rate 18 12/31/20 17:38 Blood Pressure 136/84 H 12/31/20 17:38 O2 Saturation 100 12/31/20 17:38 - NST Procedure NST Procedure Start Time 10:07 Stop Time 10:27 - Results and Plan Plan: Norma is a 20yo with complicated by IUGR at 9.2% NST perform date 12/31/2020 NST read date 12/31/2020 Baseline 120, moderate variability, + accels, no decels Impression: Reactive Final Diagnosis: IUGR Plan: Continue twice weekly NSTs and once weekly BPP Continue with routine care Pt verbalized understanding and denies questions or concerns at this time.
== END 2020-12-31 18:15 | disposition home or self-care (01) ==
LOC: WFO 17:31 → FBP 17:32 → WFO 18:15
PROVIDERS: ATTEND Nurse Practitioner Obstetrics & Gynecology
DX: O36.5990 Maternal care for other known or suspected poor fetal growth, unspecified trimester, not applicable or unspecified (principal); O26.849 Uterine size-date discrepancy, unspecified trimester; Z3A.00 Weeks of gestation of pregnancy not specified
CPT/HCPCS: 59025

== ENCOUNTER 2021-01-06 16:53 | Observation (INO) | payer OTHER ==
[2021-01-06] MEDS ORDERED: CARBOPROST TROMETHAMINE 250 MCG/ML AMP IM PRN (17:52)
[2021-01-06] MEDS ORDERED: ACETAMINOPHEN 325 MG TABLET PO PRN (17:52)
[2021-01-06] MEDS ORDERED: OXYTOCIN 10 UNIT/ML VIAL IM PRN (17:52)
[2021-01-06] MEDS ORDERED: SODIUM CHLORIDE FLUSH 0.9% 10 ML SYRINGE IVP PRN (17:52)
[2021-01-06] MEDS ORDERED: TRANEXAMIC ACID IN NACL 1,000 MG/100 ML BAG IV PRN (17:52)
[2021-01-06] MEDS ORDERED: METOCLOPRAMIDE 10 MG/2 ML VIAL IVP PRN (17:52)
[2021-01-06] MEDS ORDERED: METOCLOPRAMIDE 10 MG TABLET PO PRN (17:52)
[2021-01-06] MEDS ORDERED: LIDOCAINE-MPF 1% 30 ML VIAL ID PRN (17:52)
[2021-01-06] MEDS ORDERED: METHYLERGONOVINE 0.2 MG/ML VIAL IM PRN (17:52)
[2021-01-06] MEDS ORDERED: ONDANSETRON 4 MG/2 ML VIAL IVP PRN (17:52)
[2021-01-06] MEDS ORDERED: OXYTOCIN/SODIUM CHLORIDE 500 ML IV PRN (17:52)
[2021-01-06] MEDS ORDERED: miSOPROStoL 200 MCG TABLET BC PRN (17:52)
[2021-01-06] MEDS ORDERED: ONDANSETRON ODT 4 MG TABLET TL PRN (17:52)
[2021-01-06] MEDS ORDERED: ZOLPIDEM 5 MG TABLET PO PRN (17:59)
--- NOTE | 2021-01-06 18:03 | HISTORY & PHYSICAL EXAMINATION ---
Admit History - Visit Reason Visit Reason: Other (IOL) - : 1 Parity: 0 Premature: 0 Ectopic: 0 : 0 Care: positive: Other ([facility] after veronica at 32.1wks from [facility]) Risk/History: positive: Other (IUGR) Complications This : positive: None Smoking Status: Never smoker - Mother's Labs Mother's Blood Type: positive: O Mother's RH: positive: Positive GBS: positive: Group B Step Negative Rubella Status: positive: Immune - Other Maternal History Other Maternal History: -20yo at 39.0wks gestation who presents to Labor and Delivery for pre- induction cervical ripening secondary to IUGR -Reports movement -Denies ctx/VB/LOF - care with [facility] which has been adequate after veronica from [facility] at 32.1wks - Complications *Mild IUGR- efw 9.2%. NSTs and BPPs all wnl -Dating Criteria Initial U/S: at [facility] at 10.5wks (itz 01/18/2021) -OB Hx *G1: current -Medications * vitamin-daily -Allergies *Anesthesia during all three historical surgeries- reports itching and nausea/vomiting in the days after. *Codeine- reports makes her mean -Medical History *PTSD *Insomnia- took trazodone prior to , unisom during *Adjustment disorder -Surgical History *Tonsillectomy 2012 *ACL/Meniscus repair 2013 *[place] Teeth extraction- approx. 2016 per patient -Family History *MGM- Cancer, CVD, HTN *MGF- DM, CVD, Stroke/CVA *PGF- DM -Social History *Non contributory - Labs, Immunizations, and Findings PROBLEMS: Suspected IUGR at 9.2%. Twice weekly NSTs and once weekly BPPs initiated. 39wk IOL indicated. Scheduled 01/06/2021 at 0800 LMP: 04/08/2020 ITZ by LMP: 01/13/2021 Initial U/S: at [facility] at 10.5wks (itz 01/18/2021) Final ITZ: 01/13/2021 O pos/Rubella immune VZV immune Gentic testing: Serum Int- neg. SMA- neg FAS: anterior placenta. VALE wl. 3VC. original EFW was 8%, but addendum was made for original office US itz, putting EFW at 33% f/u US 12/07/20: VALE wnl. 2130g or 9.2% Glucola: 99 Flu: declines TDAP - 12/09/2020 GBS at 36 weeks negative HSV: denies self and partner Breast pump Rx 11/19/2020, 12/30/2020 MOD: . FOB: Neil. Desires NCB. baby GIRL Nataliia pp contraception: No POPs, Has tolerated depo, discussed Nexplanon or Mirena. PAP: 06/22/2020 ASCUS; HPV pos (16/18 neg)- follow up one year (ASCCP) -SVE 2/75%/-2/mid/mod/intact -Vertex by BSUS -EFW by yonathan's 6.5# - Physical Exam: Normocephalic, atraumatic Abdomen gravid, soft, nontender Edema- none Psych- wnl -FHTs per flowsheet -Assessment *20yo at 39.0 who presents for IOL secondary to IUGR (9.2%) *Larkin Score 6- requires cervical ripening * Heart Tones- Category I -Plan *Admit to OBS(until active labor, SROM, AROM, epidural, or pitocin) *Cervical ripening with Misoprostol *Monitoring- Continuous *Comfort measures available- position changes, whirlpool tub, fentanyl, and epidural per maternal preference *Diet/Activity- per maternal preference *Anticipate Meds/Allgy - Allergies Allergies/Adverse Reactions: Allergies Allergy/AdvReac Type Severity Reaction Status Date / Time No Known Drug Allergies Allergy Verified 07/02/20 18:15 Physical - Abdominal Exam Vital Signs: Temp Pulse Resp BP Pulse Ox 36.6 C 90 16 137/72 H 01/06/21 17:04 01/06/21 17:04 01/06/21 17:04 01/06/21 17:04 Contraction Frequency (min/apart): irregular Contraction Intensity: positive: Mild Uterine Resting Tone: positive: Soft - Monitoring Heart Rate Baseline: 135 Strip Review: positive: Category I (moderate variability, accels 15x15, no decels) - Presentation Presentation: positive: Vertex (by BSUS) - Vaginal Exam Membranes: positive: Membranes intact Dilation (in cm): 2 Effacement (%): 75 Station: positive: -2 Cervical Position: positive: Midposition
[2021-01-06 18:06] LABS: BASOPHILS % (AUTO) 0.4 %; EOSINOPHILS # (AUTO) 0.1 10^3/uL (0.0-0.7); EOSINOPHILS % (AUTO) 0.4 %; HCT - HEMATOCRIT 29.6 % (37.0-47.0); HGB - HEMOGLOBIN 9.4 g/dL (12.0-16.0); LYMPHOCYTES # (AUTO) 2.4 10^3/uL (1.5-3.5); LYMPHOCYTES % (AUTO) 21.4 %; MEAN CORPUSCULAR HEMOGLOBIN 24.4 pg (27.0-31.0); MEAN CORPUSCULAR HGB CONC 31.8 g/dL (32.0-36.0); MEAN CORPUSCULAR VOLUME 76.7 fL (81.0-99.0); MEAN PLATELET VOLUME 10.4 fL (7.9-10.8); MONOCYTES # (AUTO) 0.9 10^3/uL (0.0-1.0); NEUTROPHILS # (AUTO) 7.9 10^3/uL (1.5-6.6); NEUTROPHILS % (AUTO) 69.3 %; PLT - PLATELET COUNT 329 10^3/uL (130-450); RED BLOOD COUNT 3.86 10^6/uL (4.20-5.40); RED CELL DISTRIBUTION WIDTH 14.8 % (12.0-15.0); WHITE BLOOD COUNT 11.3 x10^3/uL (4.8-10.8)
[2021-01-06] MEDS: miSOPROStoL 100 MCG TABLET BC SCH ×2 (18:36→23:30)
[2021-01-07] MEDS: fentaNYL 100 MCG/2 ML VIAL IVP PRN ×4 (05:19→20:10)
--- NOTE | 2021-01-07 10:12 | PROVIDER PROGRESS NOTE ---
Labor Progress Note - Uterine Monitoring Uterine Monitoring Mode: positive: External toco Contraction Frequency (min/apart): 2-4 Contraction Intensity: positive: Mild to moderate Uterine Resting Tone: positive: Soft - Monitoring Monitor Mode: positive: External ultrasound Heart Rate Baseline: 145 Heart Rate Variability: positive: Moderate (6-25 bmp) Accelerations: positive: Present, 15x15 Decelerations: positive: None Strip Review: positive: Category I - Vaginal Exam Dilation (in cm): 2 Effacement (%): 75 Station: 0 Cervical Position: Midposition - Labor Progress Note Labor Progress Note/Additional Text: S: Norma is quite uncomfortable with her contractions, using the nitrous gas for management. She is agreeable to lopez balloon placement. O: Two doses of miso given, contractions are too frequent for continued administration Lopez balloon placed in uterus (60mL) and vagina (40mL) SVE 2/75/0/mod/anterior A: 20yo at 39.1 wks gestation present for IOL r/t IUGR (9.2%) Continued cervical ripening indicated P: Evaluate for lopez removal at 12hrs, or may spont expel sooner Continuous monitoring Anticipate
--- NOTE | 2021-01-07 13:50 | ANESTHESIA ---
Pre-Anesthesia VS, & Labs - Diagnosis labor induction - Procedure labor epidural Vital Signs: Temp Pulse Resp BP Pulse Ox 36.6 C 90 16 137/72 H 01/06/21 17:04 01/06/21 17:04 01/06/21 17:04 01/06/21 17:04 Height: 5 ft 4 in Weight (kg): 90.265 kg Body Mass Index: 34.1 BMI Classification: Obese - NPO >8 hours - Is Patient ?: Yes - Lab Results Current Lab Results: Laboratory Tests 01/06/21 17:55: Blood Type O POSITIVE, Antibody Screen NEGATIVE 01/06/21 17:55: WBC 11.3 H, RBC 3.86 L, Hgb 9.4 L, Hct 29.6 L, MCV 76.7 L, MCH 24.4 L, MCHC 31.8 L, RDW 14.8, Plt Count 329, MPV 10.4, Neut # (Auto) 7.9 H, Lymph # (Auto) 2.4, [place] # (Auto) 0.9, Eos # (Auto) 0.1, Baso # (Auto) 0.0, Absolute Nucleated RBC 0.00, Nucleated RBC % 0.0 Fish Bones: 01/06/21 17:55 Home Medications and Allergies Active Medications Acetaminophen (Acetaminophen 325 Mg Tablet) 650 mg PO Q6H PRN PRN Reason: Pain or Fever Last Admin: 01/07/21 06:13 Dose: 650 mg Documented by: Carboprost Tromethamine (Carboprost Tromethamine 250 Mcg/Ml Amp) 250 mcg IM Q15M PRN PRN Reason: Step 4: Hemorrhage protocol Stop: 01/11/21 17:52 Fentanyl (Fentanyl 100 Mcg/2 Ml Vial) 50 mcg IVP Q1H PRN PRN Reason: PAIN Last Admin: 01/07/21 10:02 Dose: 50 mcg Documented by: Oxytocin/Sodium Chloride (Pitocin/Sodium Chloride) 500 mls @ 999 mls/hr IV PRN PRN; Protocol PRN Reason: POST- HEMORR PREVENTION Stop: 01/11/21 17:52 Tranexamic Acid (Tranexamic 1,000 Mg/100ml-Nacl) 1,000 mg in 100 mls @ 600 mls/hr IV .ONCE PRN PRN Reason: EBL >1200mL and within 3hr Stop: 01/11/21 17:52 Lactated Ringer's (Lr) 1,000 mls @ 100 mls/hr IV .Q10H [facility] Lidocaine HCl (Lidocaine-Mpf 1% 30 Ml Vial) 30 ml ID .ONCE PRN PRN Reason: PERINEAL REPAIR Stop: 01/11/21 17:52 Methylergonovine Maleate (Methylergonovine 0.2 Mg/Ml Vial) 0.2 mg IM .ONCE PRN PRN Reason: Step 2: Hemorrhage protocol Stop: 01/11/21 17:52 Metoclopramide HCl (Metoclopramide 10 Mg Tablet) 10 mg PO Q6H PRN PRN Reason: Nausea / Vomiting Metoclopramide HCl (Metoclopramide 10 Mg/2 Ml Vial) 10 mg IVP Q6H PRN PRN Reason: Nausea / Vomiting Misoprostol (Misoprostol 200 Mcg Tablet) 800 mcg BC .ONCE PRN PRN Reason: Step 3: Hemorrhage protocol Stop: 01/11/21 17:52 Misoprostol (Misoprostol 100 Mcg Tablet) 50 mcg BC Q4HR [facility] Last Admin: 01/06/21 23:30 Dose: 50 mcg Documented by: Ondansetron HCl (Ondansetron 4 Mg/2 Ml Vial) 4 mg IVP Q4HR PRN PRN Reason: Nausea / Vomiting Last Admin: 01/07/21 06:20 Dose: 4 mg Documented by: Ondansetron HCl (Ondansetron Odt 4 Mg Tablet) 4 mg TL Q4HR PRN PRN Reason: Nausea / Vomiting Oxytocin (Oxytocin 10 Unit/Ml Vial) 10 unit IM .ONCE PRN PRN Reason: Step one: If no IV access Stop: 01/11/21 17:52 Sodium Chloride (Sodium Chloride Flush 0.9% 10 Ml Syringe) 10 ml IVP 0100,0900,1700 [facility] Sodium Chloride (Sodium Chloride Flush 0.9% 10 Ml Syringe) 10 ml IVP PRN PRN PRN Reason: NEEDED PER PROVIDER ORDERS Last Admin: 01/07/21 05:19 Dose: 10 ml Documented by: Zolpidem Tartrate (Zolpidem 5 Mg Tablet) 5 mg PO QPM PRN PRN Reason: Insomnia Last Admin: 01/06/21 22:49 Dose: 5 mg Documented by: Allergies/Adverse Reactions: Allergies Allergy/AdvReac Type Severity Reaction Status Date / Time codeine AdvReac Mild Mood Verified 01/06/21 19:58 changes Anes History & Medical History - Anesthetic History Anesthesia Complications: reports: No previous complications - Medical History Cardiovascular: reports: None Pulmonary: reports: None Neuro: reports: None Endocrine/Autoimmune: reports: None Smoking Status: Never smoker History of Cancer?: No - Obstetrical History : 1 Parity: 0 Events: reports: Other (IUGR) Complications: reports: None Exam General: Alert, Oriented x3 Dental: WNL Mouth Opening: Greater than 4 Fingerbreadths Neck Mobility: Normal Mallampati classification: II Respiratory: Lungs clear Cardiovascular: Regular rate Plan Anesthesia Type: Epidural Consent for Procedure(s) Verified and Reviewed: Yes Code Status: Attempt Resuscitation ASA classification: 2-Mild systemic disease Is this case an emergency?: No
[2021-01-07] MEDS: miSOPROStoL 100 MCG TABLET BC SCH ×2 (15:55→20:35)
[2021-01-07] MEDS: SODIUM CHLORIDE FLUSH 0.9% 10 ML SYRINGE IVP SCH (16:32)
[2021-01-07] MEDS: LACTATED RINGERS 1,000 ML IV SCH (19:13)
--- NOTE | 2021-01-07 22:12 | PROVIDER PROGRESS NOTE ---
Labor Progress Note - Uterine Monitoring Uterine Monitoring Mode: positive: External toco Contraction Frequency (min/apart): 2-5 Contraction Intensity: positive: Mild to moderate Uterine Resting Tone: positive: Soft - Monitoring Monitor Mode: positive: External ultrasound Heart Rate Baseline: 135 Heart Rate Variability: positive: Moderate (6-25 bmp) Accelerations: positive: Present, 15x15 Decelerations: positive: None Strip Review: positive: Category I - Labor Progress Note Labor Progress Note/Additional Text: S: Norma is struggling with right sided hip/leg discomfort. She has used multipl e doses of fentanyl, whirlpool tub, and position changes. She reports the pain as acceptable at this time and is aware that epidural anesthesia is available at any time. O: Lopez balloon still in place Miso dose #4 given at 2029 A: 20yo at 39.1wks present for IOL r/t IUGR (9.2%) Early labor FHT reassuring Ctx- not adequate for cervical change P: Maintain lopez bulb until spontaneous explusion or a total of 24 hours Continue with misoprostol admin, per protocol Continuous monitoring Sleep aid available Fentanyl not to exceed 200mcg in a 24 hour period.
[2021-01-07] MEDS ORDERED: ROPIVACAINE 0.2% 200 MG/100 ML BAG EP ONE (23:43)
[2021-01-08] MEDS ORDERED: ONDANSETRON 4 MG/2 ML VIAL IVP PRN (00:22)
[2021-01-08] MEDS ORDERED: NALBUPHINE 10 MG/ML AMP IVP PRN (00:22)
[2021-01-08] MEDS ORDERED: diphenhydrAMINE INJ 50 MG/ML VIAL IVP PRN (00:22)
[2021-01-08] MEDS ORDERED: METOCLOPRAMIDE 10 MG/2 ML VIAL IVP PRN (00:22)
[2021-01-08] MEDS ORDERED: ROPIVACAINE 0.2% 200 MG/100 ML BAG EP PRN ×2 (00:22→06:20)
[2021-01-08] MEDS ORDERED: ePHEDrine 50 MG/ML VIAL IVP PRN (00:22)
[2021-01-08] MEDS ORDERED: NALOXONE 0.4 MG/ML VIAL IVP PRN (00:22)
[2021-01-08] MEDS: LACTATED RINGERS 1,000 ML IV SCH ×3 (01:05→15:58)
[2021-01-08] MEDS ORDERED: OXYTOCIN/SODIUM CHLORIDE 500 ML IV SCH (03:00)
[2021-01-08] MEDS ORDERED: fentaNYL 100 MCG/2 ML VIAL ONE ×2 (05:52→11:49)
[2021-01-08] MEDS ORDERED: LIDOCAINE-PF 2% 10 ML AMP SUBQ ONE (05:52)
--- NOTE | 2021-01-08 06:19 | CONSULTATION NOTE ---
Consultation Report: Called by RN as patient complaining of pain not relieved by PCEA boluses. Epidural site intact, Fentanyl 100mcg/Lidocaine2% 10 cc bolus given. BP stable. Intermittent bolus increases to 12cc every 45 min.
--- NOTE | 2021-01-08 08:34 | CONSULTATION NOTE ---
Consultation Report: called by RN as pt complaining of pain not relieved by PCEA. Epidural site intact. Pt c/o pain at "very top and very bottom" of abdomen. Fentanyl 100mcg/Lidocaine 1% 10cc bolus given per epidural. Pt reports feeling cool sensation as bolus administered. BP remains stable.
--- NOTE | 2021-01-08 09:49 | PROVIDER PROGRESS NOTE ---
Labor Progress Note - Uterine Monitoring Uterine Monitoring Mode: positive: External toco (Nursing having difficulty trac ing contractions in certain maternal positions, using palpation at those tiems), Palpation Contraction Frequency (min/apart): 2-4 Contraction Intensity: positive: Mild to moderate Uterine Resting Tone: positive: Soft - Monitoring Monitor Mode: positive: External ultrasound Heart Rate Baseline: 140 Heart Rate Variability: positive: Moderate (6-25 bmp) Accelerations: positive: Present, 15x15 Decelerations: positive: None Strip Review: positive: Category I, Category II (periods of cat II throughout night with full recovery to Cat I) - Vaginal Exam Dilation (in cm): 5 Effacement (%): 80 Station: -1 Cervical Position: Anterior - Labor Progress Note Labor Progress Note/Additional Text: S: Norma is resting in bed with little voluntary movement of her legs. She has struggled through the night with pain coverage. She feels well managed currently, as she was recently given a bolus by the [employer]NAGER [employer]. O: 0836: SVE: /-1 AROM clear fluid Three episodes in the night of abrupt heart rate deceleration with slow recovery. Pitocin was being administered, but has now been turned off A: 20yo at 39.2wks gestation Early labor Appropriate for pitocin augmentation when Cat I strip for 60mins Discussed FHR decelerations and possibility of amnioinfusion and/or delivery for wellness, all questions answered P: Augment with pitocin as strip allows Continuous monitoring Anticipate
[2021-01-08] MEDS ORDERED: LIDOCAINE-MPF 1% 30 ML VIAL ONE (10:54)
--- NOTE | 2021-01-08 11:04 | CONSULTATION NOTE ---
Consultation Report: called to the beside for increasing labor pain. Epidural site intact. Fentanyl 100mcg/Lidocaine 10cc 1% bolus per epidural. Pt reported 'cold sensation" in back as pushing bolus. Neg aspiration. BP remained stable.
[2021-01-08] MEDS ORDERED: ROPIVACAINE 0.2% PF 10 ML VIAL ONE (11:49)
--- NOTE | 2021-01-08 12:00 | CONSULTATION NOTE ---
Consultation Report: called to the bedside for increasing labor pain. Epidural site assessed, no change in catheter position. Fentanyl 100mcg/ Ropivacaine 0.2% 6cc bolus per epidural. Negative aspiration. BP remained stable.
--- NOTE | 2021-01-08 13:12 | CONSULTATION NOTE ---
Consultation Report: Call for new pain with contractions. Level assessed at L3. Bolus 10cc Lidocaine 2%, 5cc NS slowly. New level assessed at T12, pain control satisfactory after 7 mins.
[2021-01-08] MEDS ORDERED: SODIUM CHLORIDE 0.9% 10 ML VIAL IVP ONE ×2 (13:23→14:17)
[2021-01-08] MEDS ORDERED: LIDOCAINE-MPF 2% 5 ML VIAL ONE ×2 (13:24→14:17)
--- NOTE | 2021-01-08 13:40 | PROVIDER PROGRESS NOTE ---
Labor Progress Note - Uterine Monitoring Uterine Monitoring Mode: positive: External toco Contraction Frequency (min/apart): 2-4 Contraction Intensity: positive: Mild to moderate Uterine Resting Tone: positive: Soft - Monitoring Monitor Mode: positive: External ultrasound Heart Rate Baseline: 140 Heart Rate Variability: positive: Moderate (6-25 bmp) Accelerations: positive: Present, 15x15 Decelerations: positive: None Strip Review: positive: Category I - Vaginal Exam Dilation (in cm): 6 Effacement (%): 90 Station: -1 Cervical Position: Anterior - Labor Progress Note Labor Progress Note/Additional Text: S: Norma is now comfortable with her epidural. She has had several boluses per KNITTING SUPERVISOR. O: IUPC placed at approx 1200 SVE 6/90/-1 Pitocin at 3mU/min Recheck at 1355 8/90/0 A: 20yo at 39.2wks gestation Active labor MVUs per nursing-approx 180 Adequate cervical change P: Anticipate Continue pitocin augmentation per protocol Continuous monitoring
--- NOTE | 2021-01-08 15:09 | ANESTHESIA PROCEDURE NOTE ---
Anesthesia Epidural Template - Patient Report Patient Reports: positive: Inadequate control (Pt with pain at contractions not resolved with bolus.) - Plan Plan: positive: Other (replace epidural: discussed options with mom, electes to replaced epidural. L3-4 preppped with chlorhexadine, lido 1%3cc at site after sterile prep drape. PORSCHE@7cm, DPE w/25ga to +CSF. Cath threaded to 13cm. negative test dose at 1456, bolus 7cc 2% lidocaine and restarted epidurla pump at 12cc q45m)
[2021-01-08] MEDS ORDERED: HYDROCORTISONE 1% CREAM 28 GM TUBE PR PRN (16:55)
[2021-01-08] MEDS ORDERED: WITCH HAZEL/GLYCERIN 1 PAD TOP PRN (16:55)
--- NOTE | 2021-01-08 18:24 | DELIVERY NOTE ---
Delivery Note - Labor Labor: positive: Augmented by ARM, Augmented by oxytocin - Delivery Method Delivery Method: positive: Spontaneous vaginal delivery - Cervical Ripening Method Cervical Ripening Method: positive: Balloon device, Misoprostil - Presentation Presentation: positive: Vertex - Nuchal Cord Nuchal Cord: positive: None - Amniotic Fluid Description Amniotic Fluid Description: positive: Clear - Episiotomy Type Episiotomy Type: positive: None - Laceration Laceration: positive: 1st degree, Vaginal - Suture Suture Type: positive: Vicryl Suture Size: positive: 3-0 - Delivery Outcome Delivery Outcome: positive: Livebirth - [place]: positive: Bulb syringe, Stimulated, [place] used [place] sex: positive: Female : 9 : 9 - Cord Cord: positive: 3 vessels - Placenta Placenta: positive: Intact, Spontaneous - Estimated Blood Loss Estimated Blood Loss (in cc): 150 - Post Delivery Events Post Delivery Events: positive: No post delivery events - Delivery Comments (Free Text/Narrative) Delivery Comments (Free Text/Narrative): Note: Labor: This 20 year old, , @39.0 wks gestation by 10.5 week Ultrasound, confirmed by LMP, presented on 01/06/2021 for IOL secondary to mild IUGR at 9.2%. Cervix was 2/75/-2 and vertex by BSUS. FHR pattern demonstrated 135 baseline in a Category I pattern. Cervix was ripening with misoprostol and lopez balloon, then labor was augmented with pitocin. Normal labor course. Epidural placed upon maternal request, a replacement was required for adequate coverage. AROM occurred @ 0836 and amount and color of fluid were noted to be scant and clear. : Normal of a 2970gm female , named Nataliia on 01/08/2021 @ 1615. Nuchal not present, however was found to be wrapped round baby's right elbow. The was placed on maternal abdomen, stimulated, dried and placed skin to skin. Apgars 9 at one minute and 9 at five minutes. The umbilical cord was allowed to stop pulsating at which time it was doubly clamped by CNM and cut by FOB. Pitocin administered via IV for hemostasis. Fundal massage and gentle cord traction applied for active third stage management. Cord blood was obtained. Placenta delivered spontaneously and intact at 1624. Three vessel cord. EBL 150mL. Fourth Stage: Uterine fundus firm and without excessive bleeding. The perineum, vagina, and cervix were inspected and found to have sustained a first degree vaginal laceration, for which a 3-0 vicryl was used and was repaired in standard fashion under sterile conditions. Vaginal examination following repair was done. Tissues well approximated. initiated. Family bonding well. Both mother and baby are in stable condition.
[2021-01-08] MEDS: DOCUSATE SODIUM 100 MG CAPSULE PO SCH (21:20)
[2021-01-08] MEDS: SODIUM CHLORIDE FLUSH 0.9% 10 ML SYRINGE IVP SCH (22:02)
[2021-01-09] MEDS: DOCUSATE SODIUM 100 MG CAPSULE PO SCH (09:24)
[2021-01-09] MEDS: IBUPROFEN 600 MG TABLET PO SCH ×3 (09:29→13:34)
--- NOTE | 2021-01-09 14:42 | PROVIDER PROGRESS NOTE ---
Subjective - Prog Note Date Prog Note Date: 01/09/21 Prog Note Time: 08:00 - Subjective Pt reports feeling: Improved Subjective: S: Norma is resting in bed, she is calm and expresses happiness with her , , and the support she received from her partner in labor. She reports baby's latch as strong and sometimes uncomfortable, but that she is happy that baby is a strong insurance account assistant! She reports that she is hardly bleeding any more. Her pain is reduced and she feels well healed. She reports she no longer require s the TA and ibuprofen as much. O: Fundus firm lochia rubra A: 20 yo sp pp day 1 Excellent maternal attachment behaviors noted Normal recovery P: Continue with routine care Evaluate for discharge home tomorrow Objective - Vital Signs/Intake & Output Vital Signs: Vital Signs x48h Temp Pulse Resp BP 01/09/21 09:15 36.9 C 90 18 117/71 Intake & Output: Intake & Output 01/06/21 01/07/21 01/08/21 01/09/21 23:59 23:59 23:59 23:59 Intake Total 760 1349.65 3213.017 Output Total 1225 Balance 760 1349.65 1988.017 - Lab Results Fish Bones: 01/06/21 17:55 Other Labs: Lab Results x24hrs 01/06/21 01/06/21 Range/Units 17:55 15:36 Blood Type O POSITIVE Blood Type Recheck O POSITIVE Antibody Screen NEGATIVE Crossmatch IS Only See Detail
--- NOTE | 2021-01-10 10:06 | PROVIDER PROGRESS NOTE ---
Subjective - Prog Note Date Prog Note Date: 01/10/21 Prog Note Time: 10:06 - Subjective Pt reports feeling: Improved Subjective: S: Norma is resting in bed holding baby. She is cheerful and reports a peaceful night, although she may have drank too much apple juice. She reports as going well and that she is adjusting to the lack of sleep. She is not taking PO pain meds, and feels her pain is under control. Her bleeding is light. O: fundus firm lochia rubra A: 20yo s/p on pp day 2 normal recovery P: Continue routine care Discharge home today Objective - Vital Signs/Intake & Output Vital Signs: Vital Signs x48h Temp Pulse Resp BP Pulse Ox 01/10/21 03:56 36.9 C 88 16 118/76 100 Intake & Output: Intake & Output 01/07/21 01/08/21 01/09/21 01/10/21 23:59 23:59 23:59 23:59 Intake Total 1349.65 3213.017 Output Total 1225 Balance 1349.65 1988.017 - Lab Results Fish Bones: 01/06/21 17:55 Other Labs: Lab Results x24hrs 01/06/21 Range/Units 17:55 Crossmatch IS Only See Detail
--- NOTE | 2021-01-10 10:16 | DISCHARGE SUMMARY ---
Discharge Summary Admit Date: 01/06/21 Discharge Date: 01/10/21 - HPI History of Present Illness: Admit Date 01/06/2021 Discharge Date 01/10/2021 Diagnosis on Admission: 1. A 20yo at 39.0 week intrauterine 2. IUGR (mild- 9.2%) Diagnosis on Discharge 1. A 89yo s/p spontaneous vaginal delivery on 01/08/2021 2. Normal recovery 3. AGA baby Brief History: She is a patient at [facility] who presented on 01/06/2021 for induction of labor r/t suspected IUGR. Her cervix was 2cm dilated, 75%effaced, and -2 station. Cervical ripening was performed with misoprostol and lopez balloon. She as augmented with pitocin and spontaneously delivered a viable female infant named Nataliia. Apgars were 9 and 9- and 1 and 5 minutes resp ectively. EBL 150 mL. The patient has a 1st degree laceration that was repaired with 3-0 vicryl in usual fashion under sterile conditions. She has been doing well in her course. She is ambulating and tolerating a regular diet. She is urinating without difficulty and her lochia is normal. Her pain is well controlled with oral medications. She will be discharged home today on day #2 without need for prescriptions. She intends to follow up with Midwifery at [facility] in 1, and 6 weeks for routine visit. She has been given precautions to call if she has any worsening fevers, chills, abdominal pain, increased bleeding or foul smelling vaginal lochia. - ALLERGIES Allergies/Adverse Reactions: Allergies Allergy/AdvReac Type Severity Reaction Status Date / Time codeine AdvReac Mild Mood Verified 01/06/21 19:58 changes - MEDICATIONS Home Medications: Ambulatory Orders Medication Instructions Recorded Confirmed Doxylamine Succinate [Unisom] 25 mg PO PRN PRN 01/08/21 01/08/21 Omeprazole 40 mg PO PRN PRN 01/08/21 01/08/21 diphenhydrAMINE [Benadryl] 25 mg PO HS 01/08/21 01/08/21 - LABS Result Diagrams: 01/06/21 17:55
--- NOTE | 2021-01-10 10:17 | Discharge Plan ---
Discharge Plan Problem Reviewed?: Yes Disposition: Home, Self Care Condition: Good Diet: Regular Additional Instructions or Follow Up instructions: Follow up with Midwifery at 1 and 6wks No Smoking: If you smoke, Please STOP! Call for help. Follow-up with: Nimo Petersen CNM, ARNP [Provider Admit Priv/Credential] -
[2021-01-10 15:11] VITALS: BP 115/74
--- NOTE | 2021-01-10 15:25 | Labor Flowsheet ---
Labor Flowsheet Datetime Report Generated by CPN: 01/10/2021 15:25 Datetime: 01/10/2021 09:21 VITAL SIGNS NBP Sys/Maddi/Mean (mmHg): 115 : 74 : 82 Pulse: 92 Datetime: 01/10/2021 09:20 SpO2 (%): 100 Datetime: 01/08/2021 18:30 Stage of : Recovery Datetime: 01/08/2021 17:50 Membranes Ruptured Date/Time: 01/08/2021 08:36 Amniotic Fluid Odor: Normal Cervical Ripening Agents Other: cervical balloon Datetime: 01/08/2021 16:24 Stage 2 Comments: placenta Datetime: 01/08/2021 16:22 MEDICATIONS Pitocin (milliunits): Started @ 350 Medication Comments: Datetime: 01/08/2021 16:15 Contraction Comments: IUPC removed. Contractions not traced ASSESSMENT A Monitor Mode: External US FHR Baseline Rate : 120 Variability: Moderate 6-25 bpm Accelerations: None Decelerations: None Category: Category I Datetime: 01/08/2021 16:00 UTERINE ACTIVITY Monitor Mode: Internal Frequency (min): 3-5 Quality: Strong Duration (sec): 90-160 Pattern: Normal: <= 5 Contractions in 10 Minutes Resting Tone (Palpate): Relaxed Resting Tone IUP (mmHg): 35 [place] Units (mmHg): 95 Pitocin Checklist: Uterus Palpates Soft between Contractions Datetime: 01/08/2021 15:32 I/O Interventions: [place] Discontinued Datetime: 01/08/2021 15:07 STAGE 2 Pushing: Coached on Pushing; Urge to Push Pushing Position: Pushing with Contractions; Pushing Lithotomy Datetime: 01/08/2021 15:06 VAGINAL EXAM Dilatation (cm): 9.5 Effacement (%): 100 Exam by: Denia Gillis Vaginal Exam Comments: anterior lip Datetime: 01/08/2021 15:00 Patient Care Comments: Nohemy @ bedside LaborFlag: Labor Datetime: 01/08/2021 14:58 Epidural Procedure: Loading Dose Datetime: 01/08/2021 14:53 Comments: coincidence. RN @ bedside for frequent US adjustments during epidural placement Datetime: 01/08/2021 14:49 PROCEDURE TIME OUT Procedure Verify: Correct Patient Position ANESTHESIA Anesthesia Plans: Epidural Epidural Positioning: Sitting Datetime: 01/08/2021 14:43 Anesthesia Comments: CRNAs Celis and Duron @ bedside to eval epidural and discuss replacement. Patient in agreement. Datetime: 01/08/2021 14:25 Temperature (C): 36.8 Datetime: 01/08/2021 14:22 Patient Position/Activity: High Fowlers Datetime: 01/08/2021 14:19 Epidural Procedure Other: Redose Datetime: 01/08/2021 14:11 Provider Notified (Name): IDENTIFICATION TECHNICIAN Celis Communication Comments: Called provider for ETA. Provider unable to come, IDENTIFICATION TECHNICIAN Duron entroute. Datetime: 01/08/2021 14:00 Station: 0 Datetime: 01/08/2021 13:46 PAIN Pain Scale: 7 Pain Assessment Comments: Pt starting to feel ctx again Datetime: 01/08/2021 13:12 Membrane Comments: IUPC zeroed _ flushed Datetime: 01/08/2021 12:15 Monitor Interventions for UA: IUPC Inserted Datetime: 01/08/2021 11:46 Pain Presence: Intermittent Pain Type: Cramping; Sharp; Contraction Pain Location: Abdomen Pain Coping: Crying Datetime: 01/08/2021 10:15 FHR Baseline Changes: No Baseline Change Datetime: 01/08/2021 08:36 Membrane Status: Ruptured Membranes Rupture Method: Artificial Amniotic Fluid Color: Clear Amniotic Fluid Amount: Scant Datetime: 01/08/2021 08:00 Respirations: 16 Temperature Route: Oral Datetime: 01/08/2021 06:47 COMMUNICATION Communication: Call/Page Placed to Provider Notification Reason: Status Update; Status; Labor Status Datetime: 01/08/2021 06:39 Anesthesia Level Check: T8- Ribs Datetime: 01/08/2021 06:37 Hygiene: Gini Care Datetime: 01/08/2021 06:32 Actions for Decelerations: Sterile Vaginal Exam Vaginal Bleeding: Normal Show Cervix, Consistency: Soft Cervix, Position: Midposition Presentation 'A': Cephalic Datetime: 01/08/2021 06:17 PATIENT CARE IV/Blood Work: New IV Bag Hung; IV Bag Number @ 3 Datetime: 01/08/2021 05:28 Pain Relief Measures: Comfort Measures Comfort Measures: Breathing/Relaxation Datetime: 01/08/2021 02:42 TEACHING Instructional Method: Verbal; Verbalized Understanding Plan of Care: Plan of Care Discussed Labor/Induction: Interventions Medications: Pitocin Datetime: 01/08/2021 00:35 Vital Sign Comments: o2 saturation reading low, rn to bedside, pulse ox readjusted, saturation 100% RA Datetime: 01/07/2021 23:12 Pain Management: Epidural Datetime: 01/07/2021 22:01 Monitor Interventions for FHR: Ultrasound Adjusted Datetime: 01/07/2021 21:28 Provider Reviewed Strip: Yes Datetime: 01/07/2021 20:35 Cervical Ripening Agents: Cytotec @ Datetime: 01/07/2021 20:10 Analgesics/Sedatives: Fentanyl (mcg) @ 50 IV Datetime: 01/07/2021 19:36 Unit Routine: Call Ewing; Monitoring; IV Pumps; Bathroom Privileges Datetime: 01/07/2021 19:24 MATERNAL ASSESSMENT Level of Consciousness: Alert DTR's/Clonus: DTRs 2+; No Clonus Headache: Denies Breath Sounds, Left: Clear and Equal Breath Sounds, Right: Clear and Equal Nausea/Vomiting: Denies RUQ Epigastric Pain: Denies Datetime: 01/07/2021 18:00 Oxygen Method: Room Air Datetime: 01/07/2021 06:18 Antiemetics/Antacids: Zofran (mg) @ 4 IV Datetime: 01/06/2021 20:34 Teaching Comments: educated on tub safety, pt to call RN upon exiting
== END 2021-01-10 13:25 | disposition home or self-care (01) ==
LOC: WFO 16:53 → FBP 16:58 → INTOOBSV 17:52 → WFO 17:52 → UNDOADMIN 17:52 → UNDODISIN 01-10 13:25
PROVIDERS: ADMIT Advanced Practice Midwife; ATTEND Advanced Practice Midwife
PROC: 0U7C7ZZ Dilation of Cervix, Via Natural or Artificial Opening (ICD-10-PCS; principal; 2021-01-07)
PROC: 10907ZC Drainage of Amniotic Fluid, Therapeutic from Products of Conception, Via Natural or Artificial Opening (ICD-10-PCS; 2021-01-08)
PROC: 10E0XZZ Delivery of Products of Conception, External Approach (ICD-10-PCS; 2021-01-08)
PROC: 0HQ9XZZ Repair Perineum Skin, External Approach (ICD-10-PCS; 2021-01-08)
DX: O36.5930 Maternal care for other known or suspected poor fetal growth, third trimester, not applicable or unspecified (principal); O71.4 Obstetric high vaginal laceration alone; Z3A.39 39 weeks gestation of pregnancy; Z37.0 Single live birth; O69.82X0 Labor and delivery complicated by other cord entanglement, without compression, not applicable or unspecified
CPT/HCPCS: 36415; 59200; 59409; 85025; 86850; 86900; 86901; 86920; 96374; 96375; 96376; A9270; G0378; J7120

== ENCOUNTER 2021-09-09 12:46 | Outpatient (CLI) | payer OTHER ==
--- NOTE | 2021-09-09 16:02 | MRI Report ---
PROCEDURE: Lumbar Spine W/O INDICATIONS: LUMBAGO WITH SCIATICA TECHNIQUE: Noncontrast sagittal T1 spin echo and T2 fast echo, sagittal STIR, axial T1 and T2 fast spin echo thr ough the lumbar spine. In cases with scoliosis, additional coronal T2 fast spin echo may be performe d. COMPARISON: None. FINDINGS: Image quality: Excellent. Alignment and Curvature: There is normal bony alignment. Bone Marrow: Marrow is of normal overall signal. No acute vertebral body compression fractures. Spinal Cord: Conus medullaris terminates at the L2 level. Visualized cord demonstrates normal signa l and size. Paraspinous Soft Tissues: No paravertebral masses. T12-L1: No disc bulge, spinal stenosis or foraminal narrowing. L1-L2: No disc bulge, spinal stenosis or foraminal narrowing. L2-L3: No disc bulge, spinal stenosis or foraminal narrowing. L3-L4: No disc bulge, spinal stenosis or foraminal narrowing. L4-L5: Minimal disc bulge without spinal stenosis or foraminal narrowing. L5-S1: No disc bulge, spinal stenosis or foraminal narrowing. IMPRESSION: 1. Minimal disc bulge L4-5. 2. No gross spinal stenosis or foraminal narrowing. Reviewed by: Maribel Galvan MD on 09/09/2021 4:01 PM PST Approved by: Maribel Galvan MD on 09/09/2021 4:01 PM PST Station ID: [id number]
== END 2021-09-09 12:47 | disposition home or self-care (01) ==
LOC: DI 12:46
PROVIDERS: ATTEND Student in an Organized Health Care Education/Training Program
DX: M51.86 Other intervertebral disc disorders, lumbar region (principal)